=== PATIENT | female | born 1965 | race Caucasian/White ===

== ENCOUNTER 2017-11-13 08:16 | Day surgery (SDC) | payer BC ==
[2017-11-13] MEDS ORDERED: D5 LR 1000 ML 1,000 ML IV ONE (08:53)
[2017-11-13] MEDS ORDERED: DIPRIVAN VIAL 20 ML ONE (11:25)
[2017-11-13 11:52] VITALS: BP 133/72
== END 2017-11-13 11:55 | disposition home or self-care (01) ==
LOC: SURG1 08:16
PROVIDERS: ATTEND Internal Medicine Gastroenterology
PROC: 0DJ08ZZ Inspection of Upper Intestinal Tract, Via Natural or Artificial Opening Endoscopic (ICD-10-PCS; principal; 2017-11-13 18:00)
PROC: 0DB68ZX Excision of Stomach, Via Natural or Artificial Opening Endoscopic, Diagnostic (ICD-10-PCS; principal; 2017-11-13 18:00)
PROC: 0D757ZZ Dilation of Esophagus, Via Natural or Artificial Opening (ICD-10-PCS; principal; 2017-11-13 18:00)
PROC: 0DB88ZX Excision of Small Intestine, Via Natural or Artificial Opening Endoscopic, Diagnostic (ICD-10-PCS; principal; 2017-11-13 18:00)
DX: R13.19 Other dysphagia (principal); R10.13 Epigastric pain; K21.9 Gastro-esophageal reflux disease without esophagitis; K22.4 Dyskinesia of esophagus; K22.2 Esophageal obstruction; K29.60 Other gastritis without bleeding; R10.84 Generalized abdominal pain
CPT/HCPCS: A4217; J3490; J7120

== ENCOUNTER 2017-12-11 10:02 | Day surgery (SDC) | payer BC ==
[2017-12-11] MEDS ORDERED: D5 LR 1000 ML 1,000 ML IV ONE (10:32)
[2017-12-11] MEDS ORDERED: DIPRIVAN VIAL 20 ML ONE (12:07)
[2017-12-11 12:57] VITALS: BP 118/69
== END 2017-12-11 12:58 | disposition home or self-care (01) ==
LOC: SURG1 10:02
PROVIDERS: ATTEND Internal Medicine Gastroenterology
PROC: 0DJD8ZZ Inspection of Lower Intestinal Tract, Via Natural or Artificial Opening Endoscopic (ICD-10-PCS; principal; 2017-12-11 17:15)
DX: Z12.11 Encounter for screening for malignant neoplasm of colon (principal); K64.0 First degree hemorrhoids
CPT/HCPCS: A4217; J3490; J7120